=== PATIENT | female | born 1995 | race Caucasian/White ===

== ENCOUNTER 2024-03-22 17:50 | Emergency (ER) | payer MEDICAID, SELFPAY ==
--- NOTE | ~2024-03-22 | US_ITS ---
CLINICAL HISTORY: pain after having IV days ago Venous duplex ultrasound right upper extremity Comparison: None Findings: Accessible deep venous segments are fully compressible with normal Doppler color flow and spectral tracings. IMPRESSION: 1. Negative for right upper extremity deep vein thrombosis. This document has been electronically signed by: Vargas Cadet MD on 03/22/2024 19:29:29
[2024-03-22 17:59] VITALS: BP 143/94; PULSE 76; RESP 20; TEMP 36.4; O2SAT 99; BMI 45.8
--- NOTE | 2024-03-22 18:38 | ED_ITS ---
HPI - Extremity Problem General Chief complaint: Extremity Injury, Upper Stated complaint: R hand pain/swelling Time Seen by Provider: 03/22/24 22:46 Source: patient, family and RN notes reviewed Limitations: no limitations History of Present Illness HPI Narrative: 28-year-old female who who presents complaining of right arm pain. Patient states that she does have a history of pain at the right wrist and was of carpal tunnel syndrome. Patient states she had been wearing braces at night and her symptoms had nearly resolved recently. The patient does report that she had a spontaneous miscarriage one-week ago and was seen at [facility]. Patient reports that she had blood draw and IV placed in the right arm. She reports difficulty at that time. Since then she reports having pain to the right arm specifically to the right hand and wrist. She is right-hand dominant. She denies any trauma. 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 She denies any direct trauma. No fevers chills nausea or vomiting. She has otherwise been feeling well. Related Data Previous Rx's ?Medication ?Instructions ?Recorded ibuprofen 600 mg tablet 600 mg PO Q6H PRN pain #20 tabs 03/22/24 Allergies Allergy/AdvReac Type Severity Reaction Status Date / Time No Known Allergies Allergy Verified 03/22/24 18:04 Review of Systems 2 Constitutional: Constitutional: Denies chills and Denies fever(s) Cardiovascular: Cardiovascular: Denies chest pain, Denies palpitations, Denies dyspnea, Denies dyspnea on exertion and Denies orthopnea Respiratory: Respiratory: Denies cough, Denies dyspnea and Denies dyspnea on exertion Gastrointestinal: Gastrointestinal: Denies abdominal pain, Denies melena, Denies hematochezia, Denies diarrhea, Denies nausea and Denies vomiting Genitourinary: Genitourinary: Denies dysuria and Denies urinary urgency Musculoskeletal: Musculoskeletal: Denies back pain, Reports arthralgias, Denies muscle weakness and Denies numbness Integumentary/Breasts: Skin/Breast: Denies rash Neurologic: Denies focal weakness and Denies numbness Psychiatric: Psychiatric: Denies depression Endocrine: Endocrine: Denies palpitations [facility] Past Medical History Medical History (Updated 03/22/24 @ 23:53 by JAMES Harper) Plantar wart of both feet Social History Social History Advance Directives: No Advance Directives Information Provided: Yes Do you have a plan to hurt others: No Plan Physical Exam 2 Vital Signs: Vital Signs: Last Vital Signs Temp 97.5 F 03/23/24 00:17 Pulse 69 03/23/24 00:17 Resp 16 03/23/24 00:17 BP 139/78 03/23/24 00:17 Pulse Ox 98 03/23/24 00:17 O2 Del Method Room Air 03/23/24 00:17 BMI result Body Mass Index 45.8 Skin: Other: Blanching erythema to the upper extremities, maxillary regions bilaterally, baseline according to the patient. Yellowish ecchymosis to the distal, dorsal right there is no tenderness in this region. There is no streaking or hyperemia. Extrem: Other: Cap Blocker is 5/5 on the left, 4/5 on the right secondary to pain. Positive Tinel's on the right. Opposition, abduction and adduction are intact. Capillary refills less than 2 seconds. Radial pulses are +1 and equal bilaterally. No epitrochlear or axillary lymphadenopathy Medical Decision Making Medical Decision Making [facility] Narrative: 28-year-old female with right arm pain status post IV placement. No immediate indication for cellulitis. Possible superficial phlebitis however limited skin findings. Ultrasound negative for DVT. No evidence of tenosynovitis given the range of motion on patient's exam. Mild leukocytosis likely related to patient's recent spontaneous miscarriage. She is also not having any other URI symptoms. Discussed with and examined by Dr. Stoll. Agrees with plan of treatment and follow up with PCP. Consideration for additional autoimmune testing. Differential Diagnosis Differential Diagnoses: The differential diagnosis associated with the presentation includes DVT Phlebitis Carpal tunnel syndrome Tenosynovitis Cellulitis Lab Data [facility] Lab Attestation statement: I reviewed the patient's lab results. 03/22/24 19:11 03/22/24 19:11 Labs: Lab Results 03/22/24 Range/Units 19:11 WBC 15.8 H (4.8-10.8) X10*3/uL RBC 4.73 (4.20-5.50) X10*6/uL Hgb 14.0 (12.0-16.0) g/dl Hct 41.9 (37.0-47.0) % MCV 88.6 (80.0-98.0) fL MCH 29.6 (27.0-33.0) pg MCHC 33.4 (31.0-35.0) g/dl RDW 13.2 (11.0-16.0) % Plt Count 269 (160-400) X10*3/uL MPV 10.7 (9.4-12.3) fL Immature Gran % (Auto) 0.4 (0.0-0.4) % Neut % (Auto) 71.0 (45-73) % Lymph % (Auto) 22.3 (20-40) % [place] % (Auto) 4.8 (2-11) % Eos % (Auto) 0.8 (0-4) % Baso % (Auto) 0.7 (0-2) % Lymph # (Auto) 3.5 (1.2-4.9) X10*3/uL [place] # (Auto) 0.8 (0.1-1.2) X10*3/uL Eos # (Auto) 0.1 (0.0-0.4) X10*3/uL Baso # (Auto) 0.1 (0.0-0.2) X10*3/uL Abs Immat Gran (auto) 0.07 H (0.00-0.03) X10*3/uL Absolute Neuts (auto) 11.2 H (2.0-8.3) x10*3/uL Absolute Nucleated RBC 0.000 (0.0-0.012) X10*3/uL Nucleated RBC % (auto) 0.0 (0.0-0.2) /100WBC PT 11.9 (10.9-12.4) SEC INR 1.0 (0.9-1.1) Sodium 138 (135-145) mmol/L Potassium 4.0 (3.3-5.1) mmol/L Chloride 108 (96-108) mmol/L Carbon Dioxide 23 (22-29) mmol/L Anion Gap 11 L (12-20) BUN 11 (9-16) mg/dL Creatinine 0.69 (0.5-1.4) mg/dL Estim Creat Clear Calc 188.0 Estimated GFR > 60 Random Glucose 87 (60-115) mg/dL Calcium 8.8 (8.4-10.2) mg/dL Total Bilirubin 0.4 (0.0-1.0) mg/dL AST 27 (5-31) U/L ALT 23 (0-31) U/L Alkaline Phosphatase 89 (39-117) U/L Total Protein 7.9 (6.5-8.0) g/dL Albumin 4.1 (3.5-5.0) g/dL Radiology Impression Discussion of test interpretation with radiology: I have reviewed the radiologist's reading. Radiologist Impression: [address] [address] Ultrasound Report Signed Patient: Hannah Olvera MR#: [id number] : 1995 Acct:[id number] Age/Sex: 28 / F ADM Date: 03/22/24 Loc: .ED Attending Dr: Ordering Physician: Jhoana Torre NP Date of Service: 03/22/24 Procedure(s): US venous duplex UE RT Accession Number(s): [id number] cc: Deacon Bee DO, MD; Jhoana Torre NP~ CLINICAL HISTORY: pain after having IV days ago Venous duplex ultrasound right upper extremity Comparison: None Findings: Accessible deep venous segments are fully compressible with normal Doppler color flow and spectral tracings. IMPRESSION: 1. Negative for right upper extremity deep vein thrombosis. This document has been electronically signed by: Vargas Cadet MD on 03/22/2024 19:29:29 Dictated By: Vargas Cadet MD Signed By: <Electronically signed by Vargas Cadet MD in OV> 03/22/241929 DD/ 28 TD/TT: 03/22/241928 Occupational Health And Safety Officer: Prescription Management I considered prescription management with: Pain Medication Discharge Plan Discharge Clinical Impression: Arm pain, right Patient Disposition: Home, Self-Care Instructions: Arm Pain (ED) Additional Instructions: Rest. Avoid strenuous activity. Ibuprofen as directed. Take with food. Watch for any worsening of symptoms, severe pain, fevers or any other concern return to the emergency department. Follow-up with your primary care provider. Call this week to schedule a follow- up appointment. Return to the emergency department if you have any worsening of symptoms, or any concerns. Get well soon! Prescriptions: New ibuprofen 600 mg tablet 600 mg PO Q6H PRN (Reason: pain) Qty: 20 0RF Rx Instructions: Take with food. Stand Alone Forms: Work/School Release Interventions: ED Discharge Assessment Last Done: 03/23/24 00:17 Discharge Date/Time: 03/23/24 00:18 Print Language: Pakistani
[2024-03-22 19:17] LABS: MANUAL DIFF FLAG NO
[2024-03-22 19:18] LABS: Basophils Absolute Auto 0.1 X10*3/uL (0.0-0.2); Basophils Percent Auto 0.7 % (0-2); Eosinophils Absolute Auto 0.1 X10*3/uL (0.0-0.4); Eosinophils Percent Auto 0.8 % (0-4); Hematocrit 41.9 % (37.0-47.0); Imm Gran Abs Auto 0.07 X10*3/uL (0.00-0.03); Imm Gran Pct Auto 0.4 % (0.0-0.4); Lymphocytes Absolute Auto 3.5 X10*3/uL (1.2-4.9); Lymphocytes Percent Auto 22.3 % (20-40); Mean Corpuscular HGB Conc 33.4 g/dl (31.0-35.0); Mean Corpuscular Hemoglobin 29.6 pg (27.0-33.0); Mean Corpuscular Volume 88.6 fL (80.0-98.0); Mean Platelet Volume 10.7 fL (9.4-12.3); Monocytes Absolute Auto 0.8 X10*3/uL (0.1-1.2); Monocytes Percent Auto 4.8 % (2-11); Neutrophils Absolute Auto 11.2 x10*3/uL (2.0-8.3); Platelet Count 269 X10*3/uL (160-400); Red Blood Count 4.73 X10*6/uL (4.20-5.50); Red Cell Distribution Width 13.2 % (11.0-16.0); White Blood Count 15.8 X10*3/uL (4.8-10.8)
[2024-03-22 19:34] LABS: Alanine Aminotransferase 23 U/L (0-31); Albumin Level 4.1 g/dL (3.5-5.0); Alkaline Phosphatase 89 U/L (39-117); Anion Gap 11 (12-20); Aspartate Amino Transferase 27 U/L (5-31); Bilirubin Total 0.4 mg/dL (0.0-1.0); Blood Urea Nitrogen 11 mg/dL (9-16); Calcium 8.8 mg/dL (8.4-10.2); Carbon Dioxide 23 mmol/L (22-29); Chloride 108 mmol/L (96-108); Estimated Glomerular Filt Rate > 60; Glucose Random 87 mg/dL (60-115); Sodium 138 mmol/L (135-145); Total Protein 7.9 g/dL (6.5-8.0)
[2024-03-22 19:36] LABS: Prothrombin Time 11.9 SEC (10.9-12.4)
[2024-03-22 21:23] VITALS: BP 139/78; PULSE 69; RESP 16; TEMP 36.4; O2SAT 98
[2024-03-23 00:17] VITALS: BP 139/78; PULSE 69; RESP 16; TEMP 36.4; O2SAT 98
== END 2024-03-23 00:18 | disposition home or self-care (01) ==
PROVIDERS: Registered Nurse Emergency; Emergency Provider Emergency Medicine; PCP Internal Medicine
DX: M79.601 Pain in right arm (principal)
CPT/HCPCS: 36415; 80053; 85025; 85610; 93971; 99283; 99284

== ENCOUNTER → 2024-03-22 18:38 | Outpatient (BNV) | payer MEDICAID, SELFPAY | PROVIDERS: PCP Internal Medicine; Visit Provider Radiology Diagnostic Radiology | DX: M79.641 Pain in right hand (principal) | CPT/HCPCS: 93971 ==

== ENCOUNTER 2025-03-11 09:36 | Emergency (ER) | payer OTHER, SELFPAY ==
--- NOTE | ~2025-03-11 | XR_ITS ---
EXAMINATION: XR CHEST CLINICAL INFORMATION: cough COMPARISON: None available. TECHNIQUE: 2 views of the chest were obtained. FINDINGS: No significant abnormality is noted involving the heart, lungs, mediastinum, bony thorax or soft tissues. XR/XR chest 2V IMPRESSION: No acute disease Electronically signed by: Jourdan Ahuja MD 03/11/2025 11:09 AM [facility] [place] [place]
--- NOTE | 2025-03-11 09:39 | ECG_ITS ---
Test Reason : chest pain Blood Pressure : */* mmHG Vent. Rate : 113 BPM Atrial Rate : 113 BPM P-R Int : 144 ms QRS Dur : 84 ms QT Int : 316 ms P-R-T Axes : 46 9 57 degrees QTcB Int : 433 ms Sinus tachycardia Otherwise normal ECG No previous ECGs available Referred By: Generic ED Physician Electronically Signed By: ZOHRA YOUNGBLOOD MD
[2025-03-11 09:45] VITALS: BP 172/91; PULSE 107; RESP 18; TEMP 37.1; O2SAT 97; BMI 48.9
[2025-03-11 10:14] LABS: MANUAL DIFF FLAG NO
[2025-03-11 10:15] LABS: Hematocrit 42.0 % (37.0-47.0); Hemoglobin 14.0 g/dl (12.0-16.0); Imm Gran Abs Auto 0.07 X10*3/uL (0.00-0.03); Imm Gran Pct Auto 0.6 % (0.0-0.4); Lymphocytes Absolute Auto 0.6 X10*3/uL (1.2-4.9); Mean Corpuscular HGB Conc 33.3 g/dl (31.0-35.0); Mean Corpuscular Hemoglobin 28.7 pg (27.0-33.0); Mean Corpuscular Volume 86.2 fL (80.0-98.0); NRBC Abs Auto 0.000 X10*3/uL (0.0-0.012); NRBC Pct Auto 0.0 /100WBC (0.0-0.2); Platelet Count 215 X10*3/uL (160-400); Red Blood Count 4.87 X10*6/uL (4.20-5.50); White Blood Count 11.4 X10*3/uL (4.8-10.8)
[2025-03-11 10:29] VITALS: BP 156/83; PULSE 94; RESP 16; O2SAT 98
[2025-03-11 10:32] LABS: Alanine Aminotransferase 31 U/L (0-31); Albumin Level 4.2 g/dL (3.5-5.0); Alkaline Phosphatase 98 U/L (39-117); Anion Gap 13 (12-20); Aspartate Amino Transferase 25 U/L (5-31); Blood Urea Nitrogen 8 mg/dL (9-16); Calcium 9.0 mg/dL (8.4-10.2); Carbon Dioxide 20 mmol/L (22-29); Chloride 106 mmol/L (96-108); Creatinine Clr Calc Pharmacy 190.3; Estimated Glomerular Filt Rate > 60; Magnesium 2.0 mg/dL (1.6-2.6); Potassium 3.9 mmol/L (3.3-5.1); Sodium 135 mmol/L (135-145); Total Protein 7.5 g/dL (6.5-8.0)
[2025-03-11 10:40] LABS: Troponin-I High Sensitivity < 2.7 ng/L (<3.5-17.0)
--- NOTE | 2025-03-11 10:41 | ED.CHESTPAIN ---
HPI - Chest Pain General Chief Complaint: Chest Pain Stated Complaint: SOB, chest pain Time Seen by Provider: 03/11/25 10:33 Source: patient Mode of arrival: ambulatory Limitations: no limitations History of Present Illness ED Provider: DR. Burciaga HPI narrative: 29-year-old female came in for evaluation of chest pain with chest tightness and cough with subjective fever. unknown history of exposure to sick contacts, no recent travel, no lower extremity swelling or tenderness, no history of PE or DVT patient presented today for persistent chest tightness since last night with feeling heaviness on the chest with dry cough started to days ago, otherwise no trauma or injury to the chest, right-sided chest pain. Patient is a former smoker quit 2 months ago still smoke vape and marijuana. No known history of cardiac or coronary artery disease, no family history of heart attack at young age. Related Data Previous Rx's ?Medication ?Instructions ?Recorded ibuprofen 600 mg tablet 600 mg PO Q6H PRN pain #20 tabs 03/22/24 oseltamivir 75 mg capsule (Tamiflu) 75 mg PO Q12H 5 days #10 caps 03/11/25 Allergies Allergy/AdvReac Type Severity Reaction Status Date / Time No Known Allergies Allergy Verified 03/11/25 09:47 Review of Systems Review of Systems: all other systems are reviewed and are negative Constitutional: Reports as per HPI and Reports no additional constitutional complaints Eyes: Reports as per HPI and Reports no additional eye complaints Reports system reviewed and no additional complaints, except as documented Cardiovascular: Reports as per HPI and Reports no additional cardiovascular complaints Respiratory: Reports as per HPI and Reports no additional respiratory complaints Gastrointestinal: Reports as per HPI and Reports no additional gastrointestinal complaints Genitourinary: Reports no additional female genitourinary complaints Musculoskeletal: Reports no additional musculoskeletal complaints Skin/Breast: Reports system reviewed and no additional complaints, except as docu Psychiatric: Reports no additional psychiatric complaints Endocrine: Reports no additional endocrine complaints Hematologic/Lymphatic: Reports no additional hematologic/lymphatic complaints Allergic/Immunologic: Reports no additional allergic/immunologic complaints Reports system reviewed and no additional complaints, except as documented and Reports Abnormal speech present [facility] Past Medical History Medical History Plantar wart of both feet Social History Social History Advance Directives: No Advance Directives Information Provided: Yes Physical Exam Vital Signs: Vital Signs: Last Vital Signs Temp 98.9 F 03/11/25 12:04 Pulse 86 03/11/25 12:04 Resp 20 03/11/25 12:04 BP 120/69 03/11/25 12:04 Pulse Ox 98 03/11/25 12:04 O2 Del Method Room Air 03/11/25 12:04 BMI result Body Mass Index 48.9 Vital signs have been reviewed and appear to be correct. Blood pressure elevated. Heart rate normal. Respiratory rate normal. Temperature normal. Oxygen saturation normal. Appearance: Alert. Oriented X3. No acute distress. Head: Normal external exam. Normocephalic. Atraumatic. No Shaikh signs noted. No raccoon eyes noted Eyes: PERRLA. EOMI. Conjunctiva and sclera normal. Eyelids normal. ENT: TM's Normal. Pharynx normal. Uvula midline. Moist mucous membranes. No trismus noted. No drooling noted. No muffled voice noted. Neck: Normal inspection. Neck supple. FROM. No adenopathy. Thyroid Normal. No meningeal signs. No neck mass noted. CVS: Normal heart rate and rhythm. Heart sound normal. No murmurs noted. Pulses normal throughout. Respiratory: No respiratory distress. Painless inspiration. Breath sounds normal. No wheezes/rales/rhonchi noted. Chest nontender. No accessory muscle usage noted or decreased air movement noted. Abdomen: Soft and nontender. Bowel sounds normal in all 4 quadrants. No distention noted. No organomegaly noted. No visible injury noted. Back: No CVA tenderness. Full range of motion noted. Skin: Skin warm and dry. Normal skin color. Normal skin turgor. No rashes/lesions/lacerations noted. Extremities: No lower extremity edema. Extremities exhibit normal range of motion. Extremities nontender. Neuro: Oriented X 3. Cranial nerve exam: II-XII are grossly intact No motor deficit. No sensory deficit. Reflexes normal. Course Reevaluation(s) Reevaluation #1: 29-year-old female came in with shortness of breath and cough with chest pain, + positive for flu. Patient has no risk for pulmonary embolism with negative D-dimer. Chest x-ray is unremarkable will start on Tamiflu. Time: 13:58 Medical Decision Making Differential Diagnosis Differential Diagnoses: The differential diagnosis associated with the presentation includes ( Pneumonia, pneumothorax, pleural effusion, ACS, pulmonary embolism, myofascial chest pain, costochondritis, electrolyte derangement, severe anemia.) Admission/Observation Consideration of admission/observation: Escalation of care including admission/observation considered Lab Data MDM Lab Attestation statement: I reviewed the patient's lab results. 03/11/25 10:09 03/11/25 10:09 Labs: Lab Results 03/11/25 03/11/25 Range/Units 10:09 10:44 WBC 11.4 H (4.8-10.8) X10*3/uL RBC 4.87 (4.20-5.50) X10*6/uL Hgb 14.0 (12.0-16.0) g/dl Hct 42.0 (37.0-47.0) % MCV 86.2 (80.0-98.0) fL MCH 28.7 (27.0-33.0) pg MCHC 33.3 (31.0-35.0) g/dl RDW 13.0 (11.0-16.0) % Plt Count 215 (160-400) X10*3/uL MPV 10.3 (9.4-12.3) fL Immature Gran % (Auto) 0.6 H (0.0-0.4) % Neut % (Auto) 87.1 H (45-73) % Lymph % (Auto) 5.0 L (20-40) % [place] % (Auto) 5.7 (2-11) % Eos % (Auto) 1.2 (0-4) % Baso % (Auto) 0.4 (0-2) % Lymph # (Auto) 0.6 L (1.2-4.9) X10*3/uL [place] # (Auto) 0.7 (0.1-1.2) X10*3/uL Eos # (Auto) 0.1 (0.0-0.4) X10*3/uL Baso # (Auto) 0.1 (0.0-0.2) X10*3/uL Abs Immat Gran (auto) 0.07 H (0.00-0.03) X10*3/uL Absolute Neuts (auto) 10.0 H (2.0-8.3) x10*3/uL Absolute Nucleated RBC 0.000 (0.0-0.012) X10*3/uL Nucleated RBC % (auto) 0.0 (0.0-0.2) /100WBC D-Dimer High Sensitivty < 150 NG/ML Sodium 135 (135-145) mmol/L Potassium 3.9 (3.3-5.1) mmol/L Chloride 106 (96-108) mmol/L Carbon Dioxide 20 L (22-29) mmol/L Anion Gap 13 (12-20) BUN 8 L (9-16) mg/dL Creatinine 0.66 (0.5-1.4) mg/dL Estim Creat Clear Calc 190.3 Estimated GFR > 60 Random Glucose 175 H (60-115) mg/dL Calcium 9.0 (8.4-10.2) mg/dL Magnesium 2.0 (1.6-2.6) mg/dL Total Bilirubin 0.8 (0.0-1.0) mg/dL AST 25 (5-31) U/L ALT 31 (0-31) U/L Alkaline Phosphatase 98 (39-117) U/L Troponin I High Sens < 2.7 (<3.5-17.0) ng/L Total Protein 7.5 (6.5-8.0) g/dL Albumin 4.2 (3.5-5.0) g/dL Influenza Type A (PCR) POSITIVE A (Negative) Influenza Type B (PCR) NEGATIVE (Negative) RSV RNA Qual (PCR) NEGATIVE (Negative) SARS-CoV-2 RNA (RT-PCR) NEGATIVE (Negative) Independent Interpretation I performed an independent interpretation of an: Plain X-Ray ( Chest: No acute intrathoracic pathology.) Radiology Impression Discussion of test interpretation with radiology: I have reviewed the radiologist's reading. Discharge Plan Discharge Clinical Impression: Chest pain, Influenza A Patient Disposition: Home, Self-Care Instructions: Influenza (ED) Prescriptions: New oseltamivir [Tamiflu] 75 mg capsule 75 mg PO Q12H 5 Days Qty: 10 0RF No Action ibuprofen 600 mg tablet 600 mg PO Q6H PRN (Reason: pain) Qty: 20 0RF Rx Instructions: Take with food. Referrals: Deacon Bee DO, MD [Primary Care Provider, Internal Medicine] Print Language: Arabic
[2025-03-11 10:51] LABS: Resp Syncy Virus RNA Qual PCR NEGATIVE (Negative); SARS COV2 PCR INHOUSE NEGATIVE (Negative)
[2025-03-11 11:00] LABS: D Dimer High Sensitivity < 150 NG/ML
[2025-03-11 12:04] VITALS: BP 120/69; PULSE 86; RESP 20; TEMP 37.2; O2SAT 98
--- OUTSIDE RECORDS SUMMARY | 2025-03-11 12:09 | XMS_ITS | Clinical Summary ---
Author Organization [facility] Address [address] [place] [address] Phone Care Team Providers Care Cloth Cutting Inspector Name Role Phone RichDeacon moore DO Primary Care Provider [phone] Encounters Date Type Department Care Team Description 02/18/2025 4:21 PM EST - 02/18/2025 11:59 PM EST Hospital Encounter [facility] Xray [address] [place] [address] Pain in left knee Discharge Disposition: Home or Self Care 02/18/2025 10:20 AM EST Lab Draw Station - [place] [address] [place] [address] Excessive and frequent menstruation with irregular cycle 01/30/2025 12:20 PM EST Lab Draw Station - [place] [address] [place] [address] Encounter for general adult medical examination without abnormal findings; Type 2 diabetes mellitus without complications (CMS/HCC V24, CMS/HCC V28); Nicotine dependence, unspecified, uncomplicated; Left upper quadrant abdominal swelling, mass and lump; Generalized anxiety disorder; Vitamin D deficiency, unspecified; Other specified irregular menstruation from Last 3 Months Social History Tobacco Use Types Packs/Day Years Used Date Smoking Tobacco: Never Assessed Comments Unknown Sex and Gender Information Value Date Recorded Sex Assigned at Female 06/10/2024 8:02 AM EDT Legal Sex Female 7:35 PM EST Gender Identity Female 06/10/2024 8:02 AM EDT Sexual Orientation Straight 06/10/2024 8: 02 AM EDT Plan of Treatment Health Maintenance Due Date Last Done Comments Diabetes: Annual Foot Exam 2004 Diabetes: Annual Retina Eye Exam 2004 DTaP,Tdap,and Td Vaccines (1 - Tdap) 2013 Hepatitis B Vaccines (1 of 3 - 19+ 3-dose series) 2013 Pneumococcal Vaccine: Pediatrics (0 to 5 Years) and At-Risk Patients (6 to 49 Years) (1 of 2 - PCV) 2013 Cervical Cancer Screening: Pap Smear 2015 HPV Vaccines (1 - 3-dose SCDM series) 2021 HIV Screening 02/19/2022 Hepatitis C Screening 02/19/2022 Social Influencers of Health Screening 02/19/2022 Depression Screening 03/20/2024 COVID-19 Vaccine ( season) 2024 03/08/2022, 04/08/2021, 07/27/2020, Additional history exists Influenza Vaccine (#1) 2024 , 03/21/2023, 12/31/2021, Additional history exists Diabetes: Blood Sugar Control Test (HGBA1C) 07/30/2025 01/30/2025 Diabetes: Annual Urine Albumin-Creatinine Ratio (uACR) 01/30/2026 01/30/2025 Diabetes: Annual GFR (Glomerular Filtration Rate) 01/30/2026 01/30/2025 Cholesterol Screening (Lipid Panel) 01/30/2030 01/30/2025 RSV Immunization Adult Patients (1 - 1-dose 75+ series) 2069 HIB Vaccines Aged Out No longer eligi ble based on patient's age to complete this topic Hepatitis A Vaccines Aged Out No long er eligible based on patient's age to complete this topic IPV Vaccines Aged Out No longer eligi ble based on patient's age to complete this topic MMR Vaccines Aged Out No longer eligi ble based on patient's age to complete this topic Meningococcal ACWY Vaccine Aged Out N o longer eligible based on patient's age to complete this topic Meningococcal B Vaccine Aged Out No l onger eligible based on patient's age to complete this topic RSV Immunization Patients Under 20 months Aged Out No longer eligible based on patient's age to complete this topic Varicella Vaccines Aged Out No longer eligible based on patient's age to complete this topic Procedures Procedure Name Priority Date/Time Associated Diagnosis Comments XR KNEE 4+ VIEWS LEFT Routine 02/18/2025 4:32 PM EST Pain in left knee CBC WITH AUTO DIFFERENTIAL Routine 02/18/2025 10:15 AM EST Excessive and frequent menstruation with irregular cycle RETICULOCYTE COUNT Routine 02/18/2025 10 :15 AM EST Excessive and frequent menstruation with irregular cycle FERRITIN Routine 02/18/2025 10:15 AM EST Excessive and frequent menstruation with irregular cycle IRON AND TIBC Routine 02/18/2025 10:15 AM EST Excessive and frequent menstruation with irregular cycle CBC AND DIFFERENTIAL Routine 02/18/2025 10:15 AM EST Excessive and frequent menstruation with irregular cycle CBC WITH AUTO DIFFERENTIAL Routine 01/30/2025 12:22 PM EST Nicotine dependence, unspecified, uncomplicated HCG, QUANTITATIVE Routine 01/30/2025 12: 22 PM EST Other specified irregular menstruation VITAMIN D 25 HYDROXY Routine 01/30/2025 12:22 PM EST Vitamin D deficiency, unspecified LIPID PANEL WITH REFLEX TO DIRECT LDL Routine 01/30/2025 12:22 PM EST Generalized anxiety disorder COMPREHENSIVE METABOLIC PANEL Routine 01/30/2025 12:22 PM EST Left upper quadrant abdominal swelling, mass and lump CBC AND DIFFERENTIAL Routine 01/30/2025 12:22 PM EST Nicotine dependence, unspecified, uncomplicated MICROALBUMIN CREATININE URINE RATIO Routine 01/30/2025 12:22 PM EST Type 2 diabetes mellitus without complications (CMS/HCC V24, CMS/HCC V28) HEMOGLOBIN A1C Routine 01/30/2025 12:22 PM EST Type 2 diabetes mellitus without complications (CMS/HCC V24, CMS/HCC V28) THYROID STIMULATING HORMONE WITH REFLEX TO FREE T4 AND FREE T3 Routine 01/30/2025 12:22 PM EST Encounter for general adult medical examination without abnormal findings from Last 3 Months Results * XR Knee 4+ Views Left (02/18/2025 4:32 PM EST) Anatomical Region Laterality Modality Lower Extremities, Knee Left Radiogra phic Imaging 02/19/2025 7:22 AM EST Impressions 02/19/2025 8:10 AM EST Normal examination. Code 73839 CT Teleradiology -------- FINAL REPORT -------- Dictated By: Levi Rm Dictated Date: 02/19/2025 07:22 ET Assigned Physician: Levi Rm Reviewed and Electronically Signed By: Levi Rm Signed Date: 02/19/2025 08:10 ET Workstation ID: [id number] Transcribed By: Self Edit Transcribed Date: 02/19/2025 07:22 ET Narrative 02/19/2025 8:10 AM EST HISTORY: The patient is a 29-year-old female with left knee pain. No history of trauma is provided. FINDINGS: AP, lateral, internal rotation, and external rotation views of the left knee are obtained. The study demonstrates no fracture, dislocation, arthritic change, or other bony abnormality. No joint effusion or other soft tissue abnormality is seen. Procedure Note Levi Rm MD - 02/19/2025 HISTORY: The patient is a 29-year-old female with left knee pain. Nohistory of trauma is provided. FINDINGS: AP, lateral, internal rotation, and external rotation views ofthe left knee are obtained. The study demonstrates no fracture,dislocation, arthritic change, or other bony abnormality. No jointeffusion or other soft tissue abnormality is seen. IMPRESSION: Normal examination. Code 33166 CT Teleradiology -------- FINAL REPORT -------- Dictated By: Levi Rm Dictated Date: 02/19/2025 07:22 ET Assigned Physician: Levi Rm Reviewed and Electronically Signed By: Levi Rm Signed Date: 02/19/2025 08:10 ET Workstation ID: [id number] Transcribed By: Self Edit Transcribed Date: 02/19/2025 07:22 ET Deacon Bee DO IMG XR PROCEDURES Final Resul t * (ABNORMAL) CBC auto differential (02/18/2025 10:15 AM EST) Only the most recent of2 resultswithin the time period is included. WBC 12.5(H) 4.8 - 10.8 K/mcL LAB HEMETOLOGY METHOD 02/18/2025 10:58 AM [facility] RBC 4.70 3.80 - 4.80 M/mcL LAB HEMETOLOGY METHOD 02/18/2025 10:58 AM [facility] Hemoglobin 13.9 11.5 - 16.0 g/dL LAB HEMETOLOGY METHOD 02/18/2025 10:58 AM [facility] Hematocrit 41.0 35.0 - 47.0 % LAB HEMETOLOGY METHOD 02/18/2025 10:58 AM [facility] MCV 86.7 79.0 - 98.0 FL LAB HEMETOLOGY METHOD 02/18/2025 10:58 AM [facility] MCH 29.4 27.0 - 32.0 pcg LAB HEMETOLOGY METHOD 02/18/2025 10:58 AM [facility] MCHC 33.9 32.0 - 37.0 g/dL LAB HEMETOLOGY METHOD 02/18/2025 10:58 AM [facility] RDW 12.9 11.0 - 15.0 % LAB HEMETOLOGY METHOD 02/18/2025 10:58 AM [facility] Platelets 286 130 - 400 K/mcL LAB HEMETOLOGY METHOD 02/18/2025 10:58 AM [facility] MPV 10.9 7.0 - 11.0 FL LAB HEMETOLOGY METHOD 02/18/2025 10:58 AM [facility] NRBC 0.0 <1.0 % LAB HEMETOLOGY METHOD 02/18/2025 10:58 AM [facility] NRBC Absolute 0.00 <0.10 K/mcL LAB HEMETOLOGY METHOD 02/18/2025 10:58 AM [facility] Neutrophils Relative 72.9 % LAB HEMETOLOGY METHOD 02/18/2025 10:58 AM [facility] Lymphocytes Relative 19.3 % LAB HEMETOLOGY METHOD 02/18/2025 10:58 AM [facility] Monocytes Relative 5.6 % LAB HEMETOLOGY METHOD 02/18/2025 10:58 AM [facility] Eosinophils Relative 1.0 % LAB HEMETOLOGY METHOD 02/18/2025 10:58 AM [facility] Basophils Relative 0.7 % LAB HEMETOLOGY METHOD 02/18/2025 10:58 AM [facility] Immature Granulocytes Relative 0.5 % LAB HEMETOLOGY METHOD 02/18/2025 10:58 AM [facility] Neutrophils Absolute 9.14(H) 1.50 - 7.00 K/mcL LAB HEMETOLOGY METHOD 02/18/2025 10:58 AM [facility] Lymphocytes Absolute 2.42 1.00 - 5.00 K/mcL LAB HEMETOLOGY METHOD 02/18/2025 10:58 AM [facility] Monocytes Absolute 0.70 0.20 - 1.00 K/mcL LAB HEMETOLOGY METHOD 02/18/2025 10:58 AM [facility] Eosinophils Absolute 0.12 0.00 - 0.50 K/mcL LAB HEMETOLOGY METHOD 02/18/2025 10:58 AM [facility] Basophils Absolute 0.09 0.00 - 0.20 K/[facility] LAB HEMETOLOGY METHOD 02/18/2025 10:58 AM EST [facility] Immature Granulocytes Absolute 0.06(H) 0.00 - 0.03 K/[facility] LAB HEMETOLOGY METHOD 02/18/2025 10:58 AM EST [facility] Blood Venipuncture / Unknown 02/18/2025 10:15 AM EST 02/18/2025 10:15 AM EST us Walters Mcguire PULP REFINER OPERATOR LAB BLOOD ORDERABLES Final Resul t Performing Organization Address City/[facility]/ZIP Co de Phone Number [facility] [address] [place] [address], [place] [phone] * Iron and TIBC (02/18/2025 10:15 AM EST) Iron 47 40 - 150 mcg/dL 02/18/2025 11:42 AM EST [facility] TIBC 288 250 - 450 mcg/dL 02/18/2025 11:42 AM EST [facility] Iron Saturation 16 15 - 50 % 11:42 AM EST [facility] Blood Venipuncture / Unknown 02/18/2025 10:15 AM EST 02/18/2025 10:15 AM EST us Walters Mcguire PULP REFINER OPERATOR LAB BLOOD ORDERABLES Final Resul t Performing Organization Address City/[facility]/ZIP Co de Phone Number [facility] [address] [place] [address], [place] [phone] * (ABNORMAL) Reticulocyte count (02/18/2025 10:15 AM EST) Retic Ct Abs 0.084 0.030 - 0.090 M/[facility] LAB HEMETOLOGY METHOD 02/18/2025 10:58 AM EST [facility] Retic Ct Pct 1.8(H) 0.7 - 1.7 % LAB HEMETOLOGY METHOD 02/18/2025 10:58 AM EST [facility] Immature Retic Fract 4.5 2.3 - 15.9 % LAB HEMETOLOGY METHOD 02/18/2025 10:58 AM [facility] Reticulocyte Hemoglobin 31.9 >29.0 pcg LAB HEMETOLOGY METHOD 02/18/2025 10:58 AM EST [facility] Blood Venipuncture / Unknown 02/18/2025 10:15 AM EST 02/18/2025 10:15 AM EST Walters Mcguire PULP REFINER OPERATOR LAB BLOOD ORDERABLES Final Resul t Performing Organization Address City/[facility]/ZIP Co de Phone Number [facility] [address] [place] [address], [place] [phone] * Ferritin (02/18/2025 10:15 AM EST) Ferritin 104 7 - 271 ng/mL 02/18/2025 12:31 PM EST [facility] Blood Venipuncture / Unknown 02/18/2025 10:15 AM EST 02/18/2025 10:15 AM EST us Selena Mcguire PULP REFINER OPERATOR LAB BLOOD ORDERABLES Final Resul t [facility] [address] [place] [address], [place] [phone] * Thyroid stimulating hormone with reflex to free t4 and free t3 (01/30/2025 12:22 PM EST) TSH 1.69 0.40 - 4.00 mcIU/mL LAB CHEMISTRY METHOD 01/30/2025 5:26 PM EST [facility] Blood Venipuncture / Unknown 01/30/2025 12:22 PM EST 01/30/2025 12:22 PM EST Man Jean LAB BLOOD ORDERABLES Final Resul t [facility] [address] [place] [address], [place] [phone] * Lipid panel with reflex to direct LDL (01/30/2025 12:22 PM EST) Cholesterol 162 0 - 200 mg/dL LAB CHEMISTRY METHOD 01/30/2025 4:11 PM EST [facility] Triglycerides 80 0 - 150 mg/dL LAB CHEMISTRY METHOD 01/30/2025 4:11 PM EST [facility] HDL 51 >=40 mg/dL LAB CHEMISTRY METHOD 01/30/2025 4:11 PM [facility] LDL Calculated 95 0 - 100 mg/dL LAB CHEMISTRY METHOD 01/30/2025 4:11 PM [facility] Comment:Estimated LDL Calcul ated using equation: Total cholesterol - HDL cholesterol - (Triglycerides/5) VLDL Cholesterol [place] 16 mg/dL LAB CHEMISTRY METHOD 01/30/2025 4:11 PM EST [facility] Non HDL Chol. (LDL+VLDL) 111 <145 mg/dL LAB CHEMISTRY METHOD 01/30/2025 4:11 PM [facility] Chol/HDL Ratio 3.2 0.0 - 4.4 LAB CHEMISTRY METHOD 01/30/2025 4:11 PM [facility] Blood Venipuncture / Unknown 01/30/2025 12:22 PM EST 01/30/2025 12:22 PM EST Man Jean LAB BLOOD ORDERABLES Final Resul t [facility] [address] [place] [address], [place] [phone] * (ABNORMAL) Microalbumin creatinine urine ratio (01/30/2025 12:22 PM EST) Creatinine, Urine 121.0 mg/dL LAB CHEMISTRY METHOD 01/30/2025 5:38 PM EST [facility] Microalb, Ur 164.0(H) 0.0 - 29.0 mg/L LAB CHEMISTRY METHOD 01/30/2025 5:38 PM EST [facility] Microalb/Crea t Ratio 136(H) <30 mg/g creat LAB CHEMISTRY METHOD 01/30/2025 5:38 PM EST [facility] Urine Non-blood Collection / Unknown 01/30/2025 12:22 PM EST 01/30/2025 12:22 PM EST Man [facility] URINE ORDERABLES Final Resul t Performing Organization Address City/[facility]/ZIP Co de Phone Number [facility] [address] [place] [address], [place] [phone] * (ABNORMAL) Vitamin D 25 hydroxy (01/30/2025 12:22 PM EST) [facility] Vit D, 25-Hydroxy 18.7(L) 30.0 - 80.0 ng/mL LAB CHEMISTRY METHOD 01/30/2025 5:26 PM EST [facility] Blood Venipuncture / Unknown 01/30/2025 12:22 PM EST 01/30/2025 12:22 PM EST [employer] LAB BLOOD ORDERABLES Final Resul t [facility] [address] [place] [address], [place] [phone] * HCG, quantitative (01/30/2025 12:22 PM EST) [facility] hCG Quant <1 mIU/mL LAB CHEMISTRY METHOD 01/30/2025 4:11 PM EST [facility] Blood Venipuncture / Unknown 01/30/2025 12:22 PM EST 01/30/2025 12:22 PM EST Narrative [facility] - 01/30/2025 4:11 PM EST Quantitative HCG Reference Ranges Time after Conception MIU/ML 0.2-1 Week 5-50 1-2 Weeks 50-500 2-3 Weeks 100-5,000 3-4 Weeks 500-10,000 4-5 Weeks 1,000-50,000 5-6 Weeks 10,000-100,000 6-8 Weeks 15,000-200,000 2-3 Months 10,000-100,000 2nd Trimester 1,000-94,000 3rd Trimester 2,500-90,000 Non- Females 1-3 [employer] LAB BLOOD ORDERABLES Final Resul t Performing Organization Address [facility]/ZIP Co de Phone Number [facility] [address] [place] [address], [place] [phone] * (ABNORMAL) Hemoglobin A1c (01/30/2025 12:22 PM EST) Hemoglobin A1C 6.7(H) <6.5 % LAB CHEMISTRY METHOD 01/30/2025 8:43 PM EST [facility] Mean Bld Glu Estim. 146 mg/dL LAB CHEMISTRY METHOD 01/30/2025 8:43 PM EST [facility] Blood Venipuncture / Unknown 01/30/2025 12:22 PM EST 01/30/2025 12:22 PM EST [employer] LAB BLOOD ORDERABLES Final Resul t Performing Organization Address [facility]/ZIP Co de Phone Number [facility] [address] [place] [address], [place] [phone] * (ABNORMAL) Comprehensive metabolic panel (01/30/2025 12:22 PM EST) Sodium 136 133 - 145 mmol/L LAB CHEMISTRY METHOD 01/30/2025 4:11 PM [facility] Potassium 4.3 3.5 - 5.5 mmol/L LAB CHEMISTRY METHOD 01/30/2025 4:11 PM [facility] Chloride 103 96 - 110 mmol/L LAB CHEMISTRY METHOD 01/30/2025 4:11 PM [facility] CO2 24 21 - 32 mmol/L LAB CHEMISTRY METHOD 01/30/2025 4:11 PM [facility] Anion Gap 9 3 - 11 LAB CHEMISTRY METHOD 01/30/2025 4:11 PM [facility] Glucose 124(H) 70 - 100 mg/dL LAB CHEMISTRY METHOD 01/30/2025 4:11 PM [facility] BUN 10 5 - 25 mg/dL LAB CHEMISTRY METHOD 01/30/2025 4:11 PM [facility] Creatinine 0.56 0.50 - 1.10 mg/dL LAB CHEMISTRY METHOD 01/30/2025 4:11 PM [facility] eGFR 126 >=60 mL/min/1. 73m2 LAB CHEMISTRY METHOD 01/30/2025 4:11 PM [facility] Comment:Calculation based on the Chronic Kidney Disease Epidemiology Collaboration (CKD-EPI) equation refit without adjustment for race. BUN/Creatinine Ratio 17.9 LAB CHEMISTRY METHOD 01/30/2025 4:11 PM [facility] Calcium 8.5 8.5 - 10.5 mg/dL LAB CHEMISTRY METHOD 01/30/2025 4:11 PM [facility] AST (SGOT) 25 10 - 42 unit/L LAB CHEMISTRY METHOD 01/30/2025 4:11 PM [facility] ALT (SGPT) 40 10 - 60 unit/L LAB CHEMISTRY METHOD 01/30/2025 4:11 PM EST [facility] Alkaline Phosphatase 105 42 - 121 unit/L LAB CHEMISTRY METHOD 01/30/2025 4:11 PM [facility] Total Protein 7.2 6.0 - 8.0 g/dL LAB CHEMISTRY METHOD 01/30/2025 4:11 PM [facility] Albumin 3.4 3.2 - 5.0 g/dL LAB CHEMISTRY METHOD 01/30/2025 4:11 PM [facility] Total Bilirubin 0.3 0.0 - 1.4 mg/dL LAB CHEMISTRY METHOD 01/30/2025 4:11 PM [facility] Blood Venipuncture / Unknown 01/30/2025 12:22 PM EST 01/30/2025 12:22 PM EST us Man Pena LAB BLOOD ORDERABLES Final Resul t [facility] [address] [place] [address], from Last 3 Months Insurance [facility] Care Teams Cloth Cutting Inspector Relationship Specialty Start Date End Date Deacon Bee DO [address] [place] [phone] PCP - General Internal Medicine 03/31/20
[2025-03-11 14:13] VITALS: BP 128/80; PULSE 94; RESP 16; TEMP 37.7; O2SAT 99
[2025-03-11 14:18] VITALS: BP 132/65; PULSE 79; RESP 15; TEMP 36.9; O2SAT 94
== END 2025-03-11 14:14 | disposition home or self-care (01) ==
PROVIDERS: Emergency Provider Emergency Medicine; PCP Internal Medicine
DX: R07.9 Chest pain, unspecified (principal); J10.1 Influenza due to other identified influenza virus with other respiratory manifestations; R06.02 Shortness of breath
CPT/HCPCS: 36415; 71046; 80053; 83735; 84484; 85025; 85379; 87637; 93005; 99283; 99284

== ENCOUNTER → 2025-03-11 09:39 | Outpatient (BNV) | payer OTHER, SELFPAY | PROVIDERS: Emergency Provider Emergency Medicine; PCP Internal Medicine; Visit Provider Internal Medicine Cardiovascular Disease | DX: R00.0 Tachycardia, unspecified (principal) | CPT/HCPCS: 93010 ==

== ENCOUNTER → 2025-03-11 10:38 | Outpatient (BNV) | payer OTHER, SELFPAY | PROVIDERS: Emergency Provider Emergency Medicine; PCP Internal Medicine; Visit Provider Radiology Diagnostic Radiology | DX: R05.9 Cough, unspecified (principal) | CPT/HCPCS: 71046 ==